=== PATIENT | female | born 1945 | race Caucasian/White ===

== ENCOUNTER 2017-04-16 16:06 | Emergency (ER) | payer MEDICARE, OTHER ==
[2017-04-16] MEDS ORDERED: solu-MEDROL 125 MG IM ONE (16:20)
[2017-04-16] MEDS ORDERED: BENADRYL 50 MG/ML IM ONE (16:20)
[2017-04-16 16:21] VITALS: BP 152/77; PULSE 63; O2SAT 98
[2017-04-16] MEDS ORDERED: BENADRYL 50 MG/ML ONE (16:23)
[2017-04-16] MEDS ORDERED: solu-MEDROL 125 MG ONE (16:23)
--- NOTE | 2017-04-16 16:25 | ERPHSYRPT ---
- History of Present Illness Time Seen by Provider: 04/16/17 16:21 Source: patient Exam Limitations: no limitations Patient Subjective Stated Complaint: stung on left eye andn ow 2 hrs later it has swollen almost completely shut Triage Nursing Assessment: patient has severe swelling to left eye life and lower eye, ambulates well, gait is steady, no other complicatiosn noted Physician History: 71-year-old white female arrives with complaint of. Over the edema after being stung by a wasp approximately 2 hours ago. Patient denies any other complaints Past medical history includes high blood pressure hyperlipidemia Past surgical history includes a right arm surgery and right wrist surgery. Social history positive for occasional alcohol use. Last tetanus 4 years ago. Timing/Duration: today (2 hours ago) Severity: moderate Modifying Factors: Improves With: nothing Associated Symptoms: other (left periorbital edema), No nausea, No vomiting, No abdominal pain, No shortness of breath, No heartburn, No diaphoresis, No cough, No chills, No chest pain, No fever, No headaches, No loss of appetite, No malaise, No syncope, No seizure, No weakness Allergies/Adverse Reactions: codeine Allergy (Verified 04/16/17 16:21) Hx Tetanus, Diphtheria Vaccination/Date Given: Yes Hx Influenza Vaccination/Date Given: Yes Hx Pneumococcal Vaccination/Date Given: Yes Immunizations Up to Date: Yes - Review of Systems Constitutional: No Fever, No Chills Eyes: Other (left periorbital edema), No Eye Pain, No Eye Redness, No Vision Changes Ears, Nose, & Throat: No Symptoms Respiratory: No Cough, No Dyspnea Cardiac: No Chest Pain, No Edema, No Syncope Abdominal/Gastrointestinal: No Abdominal Pain, No Nausea, No Vomiting, No Diarrhea Genitourinary Symptoms: No Dysuria Musculoskeletal: No Back Pain, No Neck Pain Skin: No Rash Neurological: No Dizziness, No Focal Weakness, No Sensory Changes Psychological: No Symptoms Endocrine: No Symptoms All Other Systems: Reviewed and Negative - Past Medical History Pertinent Past Medical History: Yes Cardiac History: High Cholesterol, Hypertension - Past Surgical History Past Surgical History: Yes Musculoskeletal: Orthopedic Surgery - Social History Smoking Status: Never smoker Drug Use: none - Nursing Vital Signs Nursing Vital Signs: Initial Vital Signs Pulse Rate 63 04/16/17 16:07 Respiratory Rate 16 04/16/17 16:07 Blood Pressure 152/77 04/16/17 16:07 O2 Sat by Pulse Oximetry 98 04/16/17 16:07 - Physical Exam General Appearance: moderate distress, other (well-developed well-nourished white female, alert, oriented x 3) Eye Exam: PERRL/EOMI, other (large amount of left periorbital edema) Ears, Nose, Throat Exam: normal ENT inspection, TMs normal, pharynx normal, moist mucous membranes Neck Exam: normal inspection, non-tender, supple, full range of motion Respiratory Exam: normal breath sounds, lungs clear, No respiratory distress Cardiovascular Exam: regular rate/rhythm ( him), normal heart sounds, normal peripheral pulses Gastrointestinal/Abdomen Exam: soft, normal bowel sounds, No tenderness, No mass Back Exam: normal inspection, normal range of motion, No CVA tenderness, No vertebral tenderness Extremity Exam: normal inspection, normal range of motion, pelvis stable Neurologic Exam: alert, oriented x 3, cooperative, normal mood/affect, nml cerebellar function, nml station & gait, sensation nml, No motor deficits Skin Exam: normal color, warm, dry, No rash Lymphatic Exam: No adenopathy SpO2 Interpretation: normal (98%) SpO2: 98 Oxygen Delivery: Room Air Ordered Tests: Medication Summary Discontinued Medications Generic Name Dose Route Start Last Admin Trade Name Carolyn PRN Reason Stop Dose Admin Diphenhydramine HCl 50 mg 04/16/17 16:20 04/16/17 16:29 Benadryl 50 Mg/Ml IM 04/16/17 16:21 50 mg STAT ONE Administration Diphenhydramine HCl Confirm 04/16/17 16:23 Benadryl 50 Mg/Ml Administered 04/16/17 16:24 Dose 50 mg .ROUTE .STK-MED ONE Methylprednisolone Sodium Succinate 125 mg 04/16/17 16:20 04/16/17 16:29 Solu-Medrol 125 Mg IM 04/16/17 16:21 125 mg STAT ONE Administration Methylprednisolone Sodium Succinate Confirm 04/16/17 16:23 Solu-Medrol 125 Mg Administered 04/16/17 16:24 Dose 125 mg .ROUTE .STK-MED ONE - Progress Progress: improved Progress Note: 04/16/17 16:53 71-year-old white female with history of left eye. Orbital edema after being stung by a wasp 2 hours prior to arrival patient has no shortness of breath she does not have a diffuse rash she has no other complaints. Patient is given Solu-Medrol 125 and Benadryl 50 mg IM cold packs were placed on the left eye. Patient is now feeling better and the edema is going down. Will plan to discharge patient. Will give patient a tapering dose of prednisone and place patient on Benadryl 50 mg orally every 6 hours for 2-3 days. Patient to continue place ice on the area - Departure Time of Disposition: 16:55 Departure Disposition: Home Clinical Impression: swelling left periorbital area Wasp sting Qualifiers: Encounter type: initial encounter Injury intent: accidental or unintentional Qualified Code(s): T63.461A - Toxic effect of venom of wasps, accidental ( unintentional), initial encounter Condition: Fair Critical Care Time: No Additional Instructions: Return home. Cold packs left side 24-48 hours. Benadryl 25-50 mg orally every 6 hours( this will make you sleepy) for 2-3 days. Tapering dose of prednisone as directed. Follow-up with your family symptoms are worse, no better in 48 hours, or persist longer than 72 hours. Return for acute distress or for severe symptoms.
== END 2017-04-16 17:06 | disposition home or self-care (01) ==
LOC: ED 16:06
DX: T63.461A Toxic effect of venom of wasps, accidental (unintentional), initial encounter (principal); H05.222 Edema of left orbit
CPT/HCPCS: 96372; 96374; 99284; J1200; J2930